=== PATIENT | female | born 1985 | race Caucasian/White ===

== ENCOUNTER 2024-06-15 15:03 | Emergency (ER) | payer OTHER ==
[2024-06-15 15:09] VITALS: BP 137/78; PULSE 97; RESP 20; TEMP 98.8; BMI 38.2
[2024-06-15 16:33] LABS: THROAT:GRP A STREP NOT DETECTED (NOTDETECTED)
== END 2024-06-15 17:05 | disposition home or self-care (01) ==
LOC: JERFT 15:03
DX: O09.513 Supervision of elderly primigravida, third trimester (principal); O99.513 Diseases of the respiratory system complicating pregnancy, third trimester; J39.8 Other specified diseases of upper respiratory tract; B97.89 Other viral agents as the cause of diseases classified elsewhere; O99.891 Other specified diseases and conditions complicating pregnancy; R09.81 Nasal congestion; R50.9 Fever, unspecified; Z3A.33 33 weeks gestation of pregnancy; Z20.822 Contact with and (suspected) exposure to COVID-19
CPT/HCPCS: 0241U-QW; 87651; 99283-25

== ENCOUNTER 2024-07-18 11:17 | Inpatient (IN) | payer OTHER ==
[2024-07-18 12:58] VITALS: BMI 39.8
[2024-07-18 13:15] LABS: BASO % 0.5 % (0-2.0); EOS % 0.8 % (0-4.5); HEMATOCRIT 35.6 % (32.4-45.2); HEMOGLOBIN 11.7 GM/dL (10.7-15.3); LYMPH % 27.8 % (8-40); MCH 29.2 pg (25.7-33.7); MCHC 32.9 g/dl (32.0-36.0); MEAN PLT VOLUME 9.6 fl (7.5-11.1); MONO % 5.3 % (3.8-10.2); NEUT % 65.6 % (42.8-82.8); PLATELET COUNT 201 10^3/uL (134-434); RDW 14.8 % (11.6-15.6); WHITE BLOOD COUNT 7.2 K/mm3 (4.0-10.0)
[2024-07-18 13:20] LABS: INR 0.93 (0.83-1.09); PROTHROMBIN TIME (PATIENT) 10.7 SEC (9.7-13.0)
[2024-07-18 13:23] LABS: ACTIVATED PTT 27.3 SECONDS (25.2-36.5)
[2024-07-18 13:44] LABS: POTASSIUM 4.6 mmol/L (3.5-5.1)
[2024-07-18 13:45] LABS: CALCIUM 8.7 mg/dL (8.5-10.1)
[2024-07-18 13:46] LABS: BLOOD UREA NITROGEN 6.6 mg/dL (7-18)
[2024-07-18 13:49] LABS: CREATININE 0.5 mg/dL (0.55-1.3)
[2024-07-18] MEDS: ELECTROLYTE-148 SOLN 1,000 ML IV SCH (14:20)
[2024-07-18 14:31] LABS: HIV INTERPRETATION NEGATIVE (NEGATIVE)
[2024-07-18] MEDS: DINOPROSTONE 10 MG VAGINAL SUPPOSITORY VG ONE (16:20)
[2024-07-19] MEDS ORDERED: OXYTOCIN 30 UNITS in 0.9% NS 30 UNIT/500 ML INFUS.BAG IVPB ONE (07:01)
[2024-07-19] MEDS: OXYTOCIN 30 UNITS in 0.9% NS 30 UNIT/500 ML INFUS.BAG IVPB SCH (07:15)
[2024-07-19] MEDS ORDERED: FENTANYL/BUPIVACAINE/NS/PF - PCEA - 50 ML DISP.SYRIN EP ONE ×4 (10:53→23:17)
[2024-07-19] MEDS ORDERED: BUPIVACAINE HCL/PF 0.25% (2.5MG/ML) 10 ML VIAL ONE (11:22)
[2024-07-19] MEDS ORDERED: FENTANYL CITRATE/PF 50 MCG/ML VIAL ONE (11:46)
[2024-07-19] MEDS: FENTANYL/BUPIVACAINE/NS/PF - PCEA - 50 ML DISP.SYRIN EP SCH (11:55)
[2024-07-19] MEDS ORDERED: NALOXONE HCL 0.4 MG/ML VIAL IVPUSH PRN (13:36)
[2024-07-20] MEDS ORDERED: FENTANYL/BUPIVACAINE/NS/PF - PCEA - 50 ML DISP.SYRIN EP ONE ×3 (02:47→08:25)
[2024-07-20] MEDS ORDERED: OXYTOCIN 20 UNITS in 0.9% NS 20 UNIT/1,000 ML INFUS.BAG IV ONE ×2 (07:21→14:44)
[2024-07-20] MEDS: OXYTOCIN 20 UNITS in 0.9% NS 20 UNIT/1,000 ML INFUS.BAG IV SCH (11:31)
[2024-07-20] MEDS ORDERED: MISOPROSTOL 200 MCG TABLET ONE (11:34)
[2024-07-20] MEDS ORDERED: METHYLERGONOVINE MALEATE 0.2 MG/1 ML AMP IM PRN (11:54)
[2024-07-20] MEDS ORDERED: WITCH HAZEL 50% (TUCKS) 40 PAD/JAR PAD TP PRN (11:54)
[2024-07-20] MEDS ORDERED: BISACODYL 10 MG SUPP.RECT RC PRN (11:54)
[2024-07-20] MEDS ORDERED: BENZOCAINE 20% 57 GM BOTTLE TP PRN (11:54)
[2024-07-20] MEDS ORDERED: oxyCODONE HCL 5 MG TABLET PO PRN (11:54)
[2024-07-20 12:03] LABS: CORD BASE EXCESS -6.4 mmol/L (0-2); CORD HCO3 18.6 mmHg (20-29); CORD pH 7.331 (7.14-7.44)
[2024-07-20 12:05] LABS: CORD HCO3 20.9 mmHg (20-29); CORD PCO2 49.8 mmHg (30-78); CORD pH 7.241 (7.14-7.44)
[2024-07-20 15:32] VITALS: RESP 18
[2024-07-20] MEDS: IBUPROFEN 600 MG TABLET (FP) PO PRN (15:35)
[2024-07-20] MEDS: BENZOCAINE 28 GM HEMORRHOIDAL OINTMENT TP PRN (20:30)
[2024-07-21] MEDS: LEVOTHYROXINE NA 75 MCG TABLET (FP) PO SCH (06:15)
[2024-07-21 07:20] LABS: BASO % 0.2 % (0-2.0); EOS % 0.6 % (0-4.5); HEMATOCRIT 28.7 % (32.4-45.2); HEMOGLOBIN 9.3 GM/dL (10.7-15.3); LYMPH % 17.5 % (8-40); MCH 28.6 pg (25.7-33.7); MCHC 32.3 g/dl (32.0-36.0); MEAN CELL VOLUME 88.6 fl (80-96); MEAN PLT VOLUME 9.1 fl (7.5-11.1); MONO % 5.5 % (3.8-10.2); NEUT % 76.2 % (42.8-82.8); PLATELET COUNT 161 10^3/uL (134-434); RBC 3.23 M/mm3 (3.60-5.2); RDW 14.8 % (11.6-15.6); WHITE BLOOD COUNT 13.7 K/mm3 (4.0-10.0)
[2024-07-21] MEDS: MISOPROSTOL 200 MCG TABLET PR ONE (09:06)
[2024-07-21] MEDS: PRENATAL VITAMINS W/ FOLIC ACID TABLET (FP) PO SCH (09:06)
[2024-07-21] MEDS: ACETAMINOPHEN 325 MG TABLET (FP) PO PRN (19:28)
[2024-07-21] MEDS ORDERED: SENNOSIDES/DOCUSATE COMBO (SENNA PLUS) TABLET (UD) PO PRN (22:00)
[2024-07-22 08:59] VITALS: BP 119/81; PULSE 79; TEMP 98
== END 2024-07-22 12:17 | disposition home or self-care (01) | DRG 807 ==
LOC: JLDR 11:17 → J3W 07-20 14:55
PROVIDERS: ADMIT Obstetrics & Gynecology; ATTEND Obstetrics & Gynecology
PROC: 3E0P7VZ Introduction of Hormone into Female Reproductive, Via Natural or Artificial Opening (ICD-10-PCS; 2024-07-18)
PROC: 10E0XZZ Delivery of Products of Conception, External Approach (ICD-10-PCS; principal; 2024-07-20)
PROC: 0HQ9XZZ Repair Perineum Skin, External Approach (ICD-10-PCS; 2024-07-20)
PROC: 0W8NXZZ Division of Female Perineum, External Approach (ICD-10-PCS; 2024-07-20)
DX: O36.5930 Maternal care for other known or suspected poor fetal growth, third trimester, not applicable or unspecified (principal); Z37.0 Single live birth; O99.214 Obesity complicating childbirth; O99.284 Endocrine, nutritional and metabolic diseases complicating childbirth; O70.0 First degree perineal laceration during delivery; Z3A.38 38 weeks gestation of pregnancy
CPT/HCPCS: 36415; 36600; 59409; 80048; 82803; 85025; 85610; 85730; 86780; 86803; 86850; 86900; 86901; 87389; 88307-TC